=== PATIENT | female | born 1970 | race African-American/Black ===

== ENCOUNTER 2016-08-03 14:57 | Emergency (ER) | payer SELFPAY ==
[~2016-08-03] VITALS: Ht 162.6 cm; Wt 68.0 kg
[2016-08-03 15:12] VITALS: BP 149/98
[2016-08-03] MEDS ORDERED: PENI500T PO (15:57)
[2016-08-03] MEDS ORDERED: HYDR-971 PO (15:57)
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
[2016-08-03] MEDS ORDERED: HYDROCODONE/APAP 5/325MG TABLET. PO ONE (16:00)
== END 2016-08-03 16:03 | disposition home or self-care (01) ==
LOC: ER 14:57
DX: K04.7 Periapical abscess without sinus (principal); R50.9 Fever, unspecified; F17.210 Nicotine dependence, cigarettes, uncomplicated; Z88.5 Allergy status to narcotic agent
CPT/HCPCS: 99283